=== PATIENT | male | born 1975 | race African-American/Black ===

== ENCOUNTER 2017-01-12 02:57 | Emergency (ER) | payer MEDICARE, MEDICAID ==
[2017-01-12] MEDS ORDERED: Magnesium Citrate 300 ML BOT ONE (04:43)
== END 2017-01-12 04:55 | disposition home or self-care (01) ==
LOC: ERS 02:57
DX: K59.00 Constipation, unspecified (principal)
CPT/HCPCS: 99283

== ENCOUNTER 2017-07-21 15:49 | Emergency (ER) | payer MEDICARE, MEDICAID | END 2017-07-21 16:36 | disposition home or self-care (01) | LOC: ERS 15:49 | DX: L03.114 Cellulitis of left upper limb (principal); I10 Essential (primary) hypertension; F17.200 Nicotine dependence, unspecified, uncomplicated; Z79.899 Other long term (current) drug therapy | CPT/HCPCS: 99283 ==

== ENCOUNTER 2019-03-28 16:31 | Emergency (ER) | payer MEDICARE, MEDICAID ==
[2019-03-28] MEDS ORDERED: Dexamethasone 10 MG/ML VIAL ONE (16:53)
== END 2019-03-28 17:13 | disposition home or self-care (01) ==
LOC: ERS 16:31
DX: L20.9 Atopic dermatitis, unspecified (principal); G89.29 Other chronic pain; M25.561 Pain in right knee; M25.562 Pain in left knee
CPT/HCPCS: 99282; J1100

== ENCOUNTER 2019-03-30 12:15 | Emergency (ER) | payer MEDICARE, MEDICAID ==
[2019-03-30] MEDS ORDERED: Aspirin 325 MG TAB ONE (14:18)
[2019-03-30] MEDS ORDERED: Ondansetron ODT 4 MG TAB ONE (14:18)
--- NOTE | 2019-03-30 14:24 | RAD ---
XR Chest 1 View Portable History: Shortness of breath Comparison: Chest radiograph 2009 Findings: There are 2 separate-short catheter projecting over the right hemithorax. Likely calcified granuloma right lower lobe. No lungs are clear without consolidation, pneumothorax, or effusion. No acute osseous abnormality. Impression: No acute intrathoracic abnormality.
[2019-03-30 14:40] LABS: #Basophils 0.1 thou/uL (0.0-0.2); #Eosinphils 0.1 thou/uL (0.0-0.7); #Lymphocytes 4.1 thou/uL (1.20-3.40); #Monocytes 1.2 thou/uL (0.11-0.59); #Neutrophils 8.6 thou/uL (1.40-6.50); %Basophils 0.7 % (0.0-1.0); %Eosinophils 0.5 % (0.0-10.0); %Lymphocytes 29.1 % (21.0-51.0); %Monocytes 8.7 % (0.0-10.0); Hemoglobin 11.9 g/dL (14.0-18.0); Mean Corpuscular HGB CONC 33.1 g/dL (32.0-36.0); Mean Corpuscular Hemoglobin 24.7 pg (27.0-31.0); Mean Corpuscular Volume 74.8 fL (78.0-98.0); Mean Platelet Volume 6.8 fL (7.4-10.4); Platelet Count 350 thou/uL (130-400); RBC Distribution Width 13.6 % (11.5-14.5); Red Blood Cell (RBC) Count 4.79 mill/uL (4.70-6.10); White Blood Cell (WBC) Count 14.2 thou/uL (4.8-10.8)
[2019-03-30 15:02] LABS: MDiff Complete? YES; Microcytosis SLIGHT = 6-15 cells (100X) (0-5/hpf); Platelet Morphology Comment Appears Adequate; Polychromasia SLIGHT = 2-3 cells (100X) (0-2/hpf); Schistocytes SLIGHT = 2-5 cells (100X) (0-1/hpf); Target Cells SLIGHT = 2-5 cells (100X) (0-1/hpf); Tear Drops SLIGHT = 2-5 cells (100X) (0-1/hpf)
[2019-03-30 15:11] LABS: ALT (SGPT) 15 U/L (8-55); AST (SGOT) 12 U/L (5-34); Albumin 4.2 g/dL (3.5-5.0); Alkaline Phosphatase 51 U/L (40-110); Anion Gap 12 mmol/L (10-20); BUN (Urea Nitrogen) 21 mg/dL (8.9-20.6); Bilirubin, Total 0.5 mg/dL (0.2-1.2); Calc. Creatinine Clearance 0 mL/min (70-130); Calcium 10.1 mg/dL (7.8-10.44); Carbon Dioxide 29 mmol/L (22-29); Chloride 92 mmol/L (98-107); Estimated GFR-MDRD Greater than 90; Globulin 2.5 g/dL (2.4-3.5); Glucose 83 mg/dL (70-105); Potassium 4.4 mmol/L (3.5-5.1); Protein, Total 6.7 g/dL (6.0-8.3); Sodium 129 mmol/L (136-145)
--- NOTE | 2019-03-30 15:37 | CT ---
Exam: Head CT without contrast HISTORY: Hiccups. Chills. SCADA TECHNICIAN shunt catheter. Brain tumor. COMPARISON: none FINDINGS: Hemorrhage: No intraparenchymal hemorrhage or extra-axial hematoma. Brain parenchyma: Cortical mcmullen-white matter differentiation is preserved. No mass effect or midline shift. 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 Stable calcification of the left and right tentorium. Stable hypoattenuation in the right centrum semiovale. Ventricular system: Decompressed. Stable positioning of a SCADA TECHNICIAN shunt catheter, likely terminating in th e frontal horn left lateral ventricle. Calvarium: Chronic changes to the occipital calvarium are noted. Sinuses and mastoid air cells: Adequate aeration. IMPRESSION: 1. Decompression of the ventricular system. Ventriculostomy terminating likely in the frontal horn le ft lateral ventricle. 2. Stable hypodensity in the right centrum semiovale. 3. Stable postsurgical change.
[2019-03-30 17:25] LABS: Troponin I Less than 0.010 ng/mL (< 0.028)
== END 2019-03-30 18:28 | disposition home or self-care (01) ==
LOC: ERS 12:15
DX: R07.89 Other chest pain (principal); I10 Essential (primary) hypertension; F17.210 Nicotine dependence, cigarettes, uncomplicated; F32.9 Major depressive disorder, single episode, unspecified
CPT/HCPCS: 36415; 70450; 71045; 80053; 84484; 85025; 93005; Q0162

== ENCOUNTER 2019-08-15 20:04 | Inpatient (IN) | payer MEDICARE, OTHER ==
[2019-08-15] MEDS ORDERED: Ondansetron PF 4 MG/2 ML Vial ONE (20:34)
--- NOTE | 2019-08-15 20:42 | RAD ---
Exam: Chest one view HISTORY:Cough. Comparison: 03/30/2019 FINDINGS: Cardiac silhouette: Normal Aorta: Unremarkable Pulmonary vessels: Normal Costophrenic angles: Clear LUNGS: No mass or consolidation. There is interstitial prominence. Pneumothorax: None Osseous abnormalities: None Redemonstration of a REAL ESTATE CLOSING COORDINATOR shunt catheter with associated peripheral calcification. IMPRESSION: Interstitial prominence. Correlate for interstitial pneumonitis.
[2019-08-15 20:43] LABS: #Lymphocytes 1.7 thou/uL (1.20-3.40); #Monocytes 0.5 thou/uL (0.11-0.59); #Neutrophils 3.4 thou/uL (1.40-6.50); %Basophils 0.3 % (0.0-1.0); %Eosinophils 0.4 % (0.0-10.0); %Lymphocytes 30.4 % (21.0-51.0); %Monocytes 9.2 % (0.0-10.0); %Neutrophils 59.6 % (42.0-75.0); Hemoglobin 13.4 g/dL (14.0-18.0); Mean Corpuscular HGB CONC 33.4 g/dL (32.0-36.0); Mean Corpuscular Hemoglobin 24.9 pg (27.0-31.0); Mean Corpuscular Volume 74.6 fL (78.0-98.0); Mean Platelet Volume 6.6 fL (7.4-10.4); Platelet Count 359 thou/uL (130-400); RBC Distribution Width 13.9 % (11.5-14.5); White Blood Cell (WBC) Count 5.6 thou/uL (4.8-10.8)
[2019-08-15 20:59] LABS: ALT (SGPT) 35 U/L (8-55); AST (SGOT) 25 U/L (5-34); Albumin 4.5 g/dL (3.5-5.0); Alkaline Phosphatase 93 U/L (40-110); Anion Gap 13 mmol/L (10-20); BUN (Urea Nitrogen) 9 mg/dL (8.9-20.6); Bilirubin, Total 0.7 mg/dL (0.2-1.2); Calc. Creatinine Clearance 0 mL/min (70-130); Calcium 9.6 mg/dL (7.8-10.44); Carbon Dioxide 25 mmol/L (22-29); Chloride 88 mmol/L (98-107); Estimated GFR-MDRD Greater than 90; Globulin 3.3 g/dL (2.4-3.5); Glucose 106 mg/dL (70-105); Lipase 39 U/L (8-78); Potassium 3.8 mmol/L (3.5-5.1); Protein, Total 7.8 g/dL (6.0-8.3); Sodium 122 mmol/L (136-145)
[2019-08-15 21:02] LABS: MDiff Complete? YES; Microcytosis SLIGHT = 6-15 cells (100X) (0-5/hpf); Platelet Morphology Comment Appears Adequate; Polychromasia SLIGHT = 2-3 cells (100X) (0-2/hpf); Schistocytes SLIGHT = 2-5 cells (100X) (0-1/hpf); Target Cells SLIGHT = 2-5 cells (100X) (0-1/hpf); Tear Drops SLIGHT = 2-5 cells (100X) (0-1/hpf)
--- NOTE | 2019-08-15 23:52 | CT ---
Exam: Head CT without contrast HISTORY: Nausea. Vomiting. Patient has a ventriculoperitoneal shunt. COMPARISON: 03/30/2019 FINDINGS: Hemorrhage: No intraparenchymal hemorrhage or extra-axial hematoma. Brain parenchyma: Stable hypoattenuation involving the right verde radiata and centrum semiovale. 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 Stable right frontal ventriculoperitoneal shunt catheter. Stable configuration the ventricular system. Ventricles appear to be significantly decompre ssed. Stable calcification along the tentorium. Ventricular system: Stable decompression of the ventricular system. Calvarium: Stable postsurgical changes involving the occiput. Sinuses and mastoid air cells: Adequate aeration. IMPRESSION: 1. No significant interval change. 2. Stable postsurgical change. 3. Stable decompression of the ventricular system.
[2019-08-16] MEDS ORDERED: Acetaminophen 500 MG TAB ONE (00:59)
--- NOTE | 2019-08-16 01:20 | PDOC.FPRHP ---
- History of Present Illness Chief Complaint: n/v/d History of Present Illness: Mr. Gotti is a 43 yo with pmhx sig for hyponatremia, s/p tumor resection with DIGITAL MARKETING PROJECT MANAGER shunt pt reports that today he has had 3 episodes of nb/b emesis, diarrhea, sick contactx1, and diffuse abdominal pain. he denies fever, chills, sob, cough, known environmental exposures, or chest pain. He was in his usual state of health the day prior. He has not had any recent follow up with neurology. He reports these episodes happen occasionally and throughout our conversation brings up chronic back and knee pain. He does not have much of an appetite ED Course: cbc, cmp, CT head 1L NS, tylenol, zofran - Allergies/Adverse Reactions Allergies Allergy/AdvReac Type Severity Reaction Status Date / Time No Known Allergies Allergy Verified 08/16/19 02:06 - Home Medications Medication Instructions Recorded Confirmed Type Escitalopram Oxalate 20 mg PO DAILY 08/16/19 08/16/19 History Hydrochlorothiazide 25 mg PO QAM 08/16/19 08/16/19 History - History PMHx: brain tumor resection w/ DIGITAL MARKETING PROJECT MANAGER shunt, HTN PSHx: above FHx: none Social: denies TAD - Review of Systems General: reports: weight/appetite/sleep changes. denies: fever/chills Eyes: denies: vision changes Respiratory: denies: cough, shortness of breath Cardiovascular: denies: chest pain, edema Gastrointestinal: reports: nausea, vomiting, diarrhea, abdominal pain. denies: GI bleeding Genitourinary: denies: incontinence, dysuria Skin: denies: rashes, lesions Musculoskeletal: reports: pain Neurological: denies: numbness, syncope - Vital signs 154/97, Pulse: 88, Resp: 19, Temp: 98.7 (Oral), Pain: 10, O2 sat: 100 on (Room Air - Physical Exam Constitutional: NAD, awake, alert and oriented HEENT: normocephalic and atraumatic, grossly normal vision, grossly normal hearing, MMM Neck: trachea midline Chest: no-tender to palpation Heart: RRR, normal S1/S2, no murmurs/rubs/gallops Lungs: CTAB, no respiratory distress Abdomen: soft, bowel sounds present, no masses/distention, other (TTP) Musculoskeletal: normal structure, normal tone Neurological: no focal deficit, CN II-XII intact Skin: no rash/lesions, good turgor Heme/Lymphatic: no unusual bruising or bleeding Psychiatric: normal mood and affect FMR H&P: Results - Labs Result Diagrams: 08/16/19 05:35 08/16/19 09:14 Lab results: WBC 5.6 thou/uL (4.8-10.8) 08/15/19 20:30 Hgb 13.4 g/dL (14.0-18.0) L 08/15/19 20:30 Hct 40.3 % (42.0-52.0) L 08/15/19 20:30 MCV 74.6 fL (78.0-98.0) L 08/15/19 20:30 Plt Count 359 thou/uL (130-400) 08/15/19 20:30 Neutrophils % 59.6 % (42.0-75.0) 08/15/19 20:30 Sodium 122 mmol/L (136-145) L 08/15/19 20:30 Potassium 3.8 mmol/L (3.5-5.1) 08/15/19 20:30 Chloride 88 mmol/L (98-107) L 08/15/19 20:30 Carbon Dioxide 25 mmol/L (22-29) 08/15/19 20:30 BUN 9 mg/dL (8.9-20.6) 08/15/19 20:30 Creatinine 0.78 mg/dL (0.7-1.3) 08/15/19 20:30 Glucose 106 mg/dL (70-105) H 08/15/19 20:30 Lactic Acid 0.8 mmol/L (0.5-2.2) 08/15/19 20:30 Calcium 9.6 mg/dL (7.8-10.44) 08/15/19 20:30 Total Bilirubin 0.7 mg/dL (0.2-1.2) 08/15/19 20:30 AST 25 U/L (5-34) 08/15/19 20:30 ALT 35 U/L (8-55) 08/15/19 20:30 Alkaline Phosphatase 93 U/L (40-110) 08/15/19 20:30 Serum Total Protein 7.8 g/dL (6.0-8.3) 08/15/19 20:30 Albumin 4.5 g/dL (3.5-5.0) 08/15/19 20:30 Lipase 39 U/L (8-78) 08/15/19 20:30 FMR H&P: A/P - Problem List (1) S/P DIGITAL MARKETING PROJECT MANAGER shunt Current Visit: Yes Status: Acute (2) Hyponatremia Current Visit: Yes Status: Acute Code(s): E87.1 - HYPO-OSMOLALITY AND HYPONATREMIA (3) Viral gastroenteritis Current Visit: Yes Status: Acute Code(s): A08.4 - VIRAL INTESTINAL INFECTION , UNSPECIFIED (4) Chronic pain Current Visit: Yes Status: Acute Code(s): G89.29 - OTHER CHRONIC PAIN - Plan hypovolemic hyponatremia - baseline 129, 122 on admission, s/p 1L in ED - ivf rescus, Q4hr BMP - do no correct greater than 130 in 24hr period s/p DIGITAL MARKETING PROJECT MANAGER shunt - CT does not reveal hydrocephalus HTN - aware, monitor - no home meds chronic pain - UDS pending ppx: lovenox code: full pcp: CC dispo: medical inpatient, LOS>48 for hyponatremia correction FMR H&P: Upper Level - Plan Date/Time: 08/16/19 0116 I, [], have evaluated this patient and agree with findings/plan as outlined by internal consultant resident. Pertinent changes/additions are listed here. Addendum - Attending - Attending Attestation Date/Time: 08/16/19 1310 I personally evaluated the patient and discussed the management with Dr. Mcwilliams. I agree with the History, Examination, Assessment and Plan documented above with any addition or exceptions noted below. Acute on chronic hyponatremia. Clinically volume down. Likely hypovolemic hyponatremia. Urine studies consistent with this diagnosis. Will switch to NS as decrease Na after 8 hrs of LR. If not improving or worsening hyponatremia at next check will consult nephrology and consider adding vasopressin receptor antagonist and fluid restricting. Patient expressed desire to go home today. I explained he would need to stay overnight an explained to he and his SO that if his serum sodium down trends further, he may be at risk for seizure. They expressed understanding and agreed to continued hospitalization.
[2019-08-16] MEDS ORDERED: Ondansetron ODT 4 MG TAB PO PRN ×2 (02:08→03:28)
[2019-08-16 02:10] VITALS: BMI 27.5
[2019-08-16] MEDS ORDERED: Ondansetron PF 4 MG/2 ML Vial IVP PRN (03:28)
[2019-08-16] MEDS ORDERED: Acetaminophen 650 MG Suppository PR PRN (03:28)
[2019-08-16] MEDS ORDERED: Lactated Ringer's 1,000 ML IV SCH (03:28)
[2019-08-16 03:59] LABS: Bacteria/HPF None Seen HPF (None Seen); Bilirubin Negative (Negative); Blood, Urine Negative (Negative); Clarity Clear (Clear); Glucose, Urine (Dipstick) Normal (Negative); Leukocyte Negative Leu/uL (Negative); Nitrite Negative (Negative); Protein, Urine (Dipstick) 10 mg/dL (Neg-Trace); Squamous Epithelial 0-3 HPF (0-3); Urobilinogen Normal mg/dL (Less than 2); WBC/HPF 0-3 HPF (0-3)
[2019-08-16 04:10] LABS: Amphetamine Not Detected (NotDetected); Barbiturates Screen Not Detected (NotDetected); Benzodiazepine Screen Not Detected (NotDetected); Cocaine Metabolite Screen Not Detected (NotDetected); Medtox Control Line Valid? VALID (VALID); Medtox Reader # READER 4; Methadone Not Detected (NotDetected); Methamphetamine Not Detected (NotDetected); Opiate Screen Not Detected (NotDetected); Oxycodone Screen Not Detected (NotDetected); Phencyclidine (PCP) Not Detected (NotDetected); THC/Cannabinoid Screen Not Detected (NotDetected); Tricyclic Screen Not Detected (NotDetected)
[2019-08-16] MEDS: Acetaminophen 325 MG TAB PO PRN (04:23)
[2019-08-16 05:51] LABS: #Basophils 0.1 thou/uL (0.0-0.2); #Lymphocytes 1.1 thou/uL (1.20-3.40); #Monocytes 0.5 thou/uL (0.11-0.59); #Neutrophils 2.5 thou/uL (1.40-6.50); %Basophils 1.3 % (0.0-1.0); %Eosinophils 0.4 % (0.0-10.0); %Lymphocytes 26.4 % (21.0-51.0); %Monocytes 12.3 % (0.0-10.0); %Neutrophils 59.6 % (42.0-75.0); Hemoglobin 12.3 g/dL (14.0-18.0); Mean Corpuscular HGB CONC 32.5 g/dL (32.0-36.0); Mean Corpuscular Hemoglobin 24.5 pg (27.0-31.0); Mean Corpuscular Volume 75.3 fL (78.0-98.0); Mean Platelet Volume 7.1 fL (7.4-10.4); Platelet Count 333 thou/uL (130-400); RBC Distribution Width 13.6 % (11.5-14.5); Red Blood Cell (RBC) Count 5.01 mill/uL (4.70-6.10); White Blood Cell (WBC) Count 4.3 thou/uL (4.8-10.8)
[2019-08-16 06:08] LABS: Anion Gap 14 mmol/L (10-20); BUN (Urea Nitrogen) 8 mg/dL (8.9-20.6); Calc. Creatinine Clearance 146 mL/min (70-130); Calcium 9.3 mg/dL (7.8-10.44); Carbon Dioxide 24 mmol/L (22-29); Chloride 88 mmol/L (98-107); Estimated GFR-MDRD Greater than 90; Glucose 96 mg/dL (70-105); Potassium 3.5 mmol/L (3.5-5.1); Sodium 122 mmol/L (136-145)
[2019-08-16] MEDS: Enoxaparin Sodium 40 MG/0.4 ML SYRINGE SC SCH (08:47)
[2019-08-16] MEDS: Escitalopram Oxalate 20 mg Tablet PO SCH (08:47)
[2019-08-16] MEDS ORDERED: Dicyclomine 20 MG TAB PO PRN (08:51)
[2019-08-16 09:42] LABS: Anion Gap 13 mmol/L (10-20); BUN (Urea Nitrogen) 8 mg/dL (8.9-20.6); Calc. Creatinine Clearance 146 mL/min (70-130); Calcium 9.2 mg/dL (7.8-10.44); Carbon Dioxide 23 mmol/L (22-29); Chloride 88 mmol/L (98-107); Estimated GFR-MDRD Greater than 90; Glucose 134 mg/dL (70-105); Potassium 3.6 mmol/L (3.5-5.1); Sodium 120 mmol/L (136-145)
[2019-08-16] MEDS ORDERED: Sodium Chloride 0.9% 1,000 ML IV SCH (11:00)
[2019-08-16 12:47] LABS: Creatinine, Urine 157.21 mg/dL (63-166)
[2019-08-16 14:00] LABS: Anion Gap 12 mmol/L (10-20); BUN (Urea Nitrogen) 7 mg/dL (8.9-20.6); Calc. Creatinine Clearance 148 mL/min (70-130); Calcium 9.1 mg/dL (7.8-10.44); Carbon Dioxide 25 mmol/L (22-29); Chloride 84 mmol/L (98-107); Estimated GFR-MDRD Greater than 90; Glucose 122 mg/dL (70-105); Potassium 3.3 mmol/L (3.5-5.1)
[2019-08-16 14:04] LABS: Sodium 118 mmol/L (136-145)
[2019-08-16] MEDS: Sodium Chloride 1 GM TAB PO SCH ×2 (14:51→21:07)
[2019-08-16 18:03] LABS: Anion Gap 16 mmol/L (10-20); BUN (Urea Nitrogen) 6 mg/dL (8.9-20.6); Calc. Creatinine Clearance 159 mL/min (70-130); Calcium 9.4 mg/dL (7.8-10.44); Carbon Dioxide 22 mmol/L (22-29); Chloride 83 mmol/L (98-107); Estimated GFR-MDRD Greater than 90; Glucose 99 mg/dL (70-105); Potassium 3.3 mmol/L (3.5-5.1)
[2019-08-16 18:16] LABS: Sodium 118 mmol/L (136-145)
[2019-08-16] MEDS ORDERED: Ibuprofen 800 MG TAB PO PRN (18:18)
[2019-08-16] MEDS ORDERED: Potassium Chloride 20 MEQ TAB PO SCH (19:00)
--- NOTE | 2019-08-16 20:03 | CON ---
DATE OF CONSULTATION: 08/16/2019 SERVICE: Nephrology. CONSULTING PHYSICIAN: Dr. David Oconnor. REASON FOR CONSULTATION: Hyponatremia. CHIEF COMPLAINT: Nausea and vomiting. HISTORY OF PRESENT ILLNESS: A 43-year-old male with known history of brain tumor, status post tumor resection with SOLAR FIELD INSTALLATION CREW MEMBER shunt placement, was admitted earlier today due to nausea, vomiting associated with diarrhea and abdominal discomfort that started prior to presentation. The patient reportedly had about 3 episodes of emesis and diarrhea prior to presentation. There was no associated fever, chills, shortness of breath, cough, or chest pain. In the emergency room, the patient was found to have hyponatremia with sodium of 122, which was relatively lower than previous level of 129. Impression of possible dehydration was made and the patient was started on lactated Ringer's after normal saline bolus. However, repeat BMP showed downward trending of serum sodium from 122 on presentation to 118, hence Nephrology consult. The patient denied any focal weakness, change in gait or memory lapses. PAST MEDICAL HISTORY: 1. Brain tumor, status post resection. 2. Hypertension. PAST SURGICAL HISTORY: Brain tumor resection and SOLAR FIELD INSTALLATION CREW MEMBER shunt placement. PSYCHIATRIC ILLNESS: Depression. FAMILY HISTORY: Reviewed, but noncontributory. SOCIAL HISTORY: The patient denied recreational drug use, but admitted to alcohol use, which he reports occasionally about 2 times in a month. He admitted to smoking about 2 packs per day. ALLERGIES: NO KNOWN DRUG ALLERGIES REPORTED. HOME MEDICATIONS: 1. Acyclovir 800 mg p.o. p.r.n. 2. Diclofenac 100 mg p.o. daily in the morning. 3. Escitalopram 20 mg p.o. daily. 4. Gabapentin 600 mg p.o. t.i.d. 5. Hydrochlorothiazide 25 mg p.o. daily. 6. Ibuprofen 800 mg p.o. p.r.n. 7. Meloxicam p.o. daily at bedtime. 8. Trazodone p.o. daily at bedtime. REVIEW OF SYSTEMS: 12-point review of system performed was negative other than pertinent positives and negatives included in the history of present illness. PHYSICAL EXAMINATION: VITAL SIGNS: Temperature 98.2, pulse 77, respiratory rate 18, SpO2 of 100% on room air, and blood pressure is 141/94. GENERAL: Middle-aged male, in no obvious distress. Afebrile. Anicteric. Acyanotic. HEENT: Normocephalic. Scars of prior head surgery noted. Oral mucosa is moist. NECK: Supple with no JVD. CARDIOVASCULAR: Regular rhythm and rate with normal heart sounds 1 and 2. RESPIRATORY: Fair air entry bilaterally with no obvious crackle or rhonchi or use of accessory muscles. GI: Full, soft, nontender, and nondistended with normal bowel sounds. EXTREMITIES: Grossly normal looking atraumatic with no obvious edema or erythema. SUPERVISOR COREMAKER: Conscious and alert, oriented x3 with appropriate mental status. Cranial nerves 2 through 12 are grossly intact. The patient is ambulant with antalgic gait. He ambulates with a cane. DIAGNOSTIC DATA: CBC earlier today showed WBC count of 4.3, hemoglobin of 12.3, MCV of 75.3, and platelet of 333. Most recent BMP at 1323 hours today showed sodium 118, potassium 3.3, chloride 84, CO2 of 25, BUN 7, creatinine 0.74, glucose 122, calcium 9.1. However, on presentation to the hospital on August 14, sodium was 125, potassium 3.8, chloride 88, CO2 of 25, BUN 9, and creatinine 0.78. LFTs were unremarkable. Urinalysis performed earlier today showed light yellow clear urine with pH of 7.0, specific gravity of 1.024, urine protein 10 mg/dL, normal glucose, ketones were 60 mg/dL, negative blood, nitrite, bilirubin, or leukocyte esterase. Microscopy showed 4 to 6 rbc, 0 to 3 wbc, and no bacteria seen. Urine chemistry showed urine osmolality 797, urine creatinine 157.2, urine sodium 177, and urine urea nitrogen 549. Urine drug screen was unremarkable. CT scan of the brain performed on presentation on August 14 showed no significant interval change when compared to prior imaging of March 30, 2019. Stable postsurgical changes as well as stable decompression of the ventricular system were noted. Chest x-ray performed on presentation on August 14, 2018, showed interstitial prominence, but no masses or consolidation nor pneumothorax. ASSESSMENT: 1. Hyponatremia, moderate to severe. On presentation, plasma sodium was 122, which dropped to 118 following treatment with crystalloid. Of note, the patient has hyponatremia, which dates back to 2016. This most likely is related to the brain tumor and brain surgery. However, the patient also is on hydrochlorothiazide and on trazodone and then Cymbalta, which can all lead to hyponatremia. Urine osmolality of 797 in the face of hyponatremia of 118 is consistent with syndrome of inappropriate ADH secretion. This may have been worsened by current episode of nausea and vomiting. 2. Hypokalemia: Due to treatment with hydrochlorothiazide and GI losses as the patient had diarrhea illness. 3. Presumed acute gastroenteritis: Most likely food poisoning related, resolving. 4. Stable renal function. 5. Hypertension: Control is acceptable. PLAN: 1. Agree with holding of hydrochlorothiazide. 2. We will go ahead and stop crystalloids. 3. Given that sodium has dropped down from 122 on presentation to 118, we will go ahead and start the patient on oral salt tablets, though the patient remained asymptomatic neurologically. 4. We will continue to monitor serum electrolytes. 5. We will also replete serum potassium. 6. We will get repeat BMP in the morning as well as magnesium level. 7. Further treatment to follow depending on hospital course. 8. Agree with fluid restriction to 1000 mL per 24 hours. Job ID: [id number]
[2019-08-16] MEDS: traZODone HCl 50 MG TAB PO SCH (21:06)
[2019-08-16] MEDS: Gabapentin 300 MG CAP PO SCH (21:07)
[2019-08-17] MEDS ORDERED: Cosyntropin 250 MCG VIAL SLOW IVP SCH ×2 (06:10→07:10)
--- NOTE | 2019-08-17 06:20 | PDOC.FM ---
- Subjective Subjective: Pt is a 43 yo male who is AAO x 3. He has no confusion and did not have any. He denies neurological deficits. He has no concerns today. - Objective Vital Signs & Weight: Vital Signs (12 hours) Temp Pulse Resp BP BP Pulse Ox 08/16/19 23:47 98.2 F 70 16 141/88 H 100 08/16/19 20:04 98.0 F 84 12 135/75 100 08/16/19 19:35 100 Weight Weight 82.146 kg I&O: 08/15/19 08/16/19 08/17/19 06:59 06:59 06:59 Intake Total 840 110 Balance 840 110 Result Diagrams: 08/16/19 05:35 08/17/19 06:00 Phys Exam - Physical Examination Constitutional: NAD HEENT: PERRLA, moist MMs Respiratory: no wheezing, clear to auscultation bilateral Cardiovascular: RRR, no significant murmur Gastrointestinal: soft, non-tender, no distention Musculoskeletal: no edema, pulses present Neurological: non-focal, normal sensation Psychiatric: normal affect, A&O x 3 Skin: no rash, cap refill <2 seconds Dx/Plan (1) Chronic pain Code(s): G89.29 - OTHER CHRONIC PAIN Status: Acute (2) Hyponatremia Code(s): E87.1 - HYPO-OSMOLALITY AND HYPONATREMIA Status: Acute (3) S/P SNOW SHOVELER shunt Status: Acute - Plan Plan: # Hypovolemic hyponatremia superimposed on Euvolemic Hyponatremia - baseline 129, 122 on admission, - continue fluid restriction, salt lick, hold HCTZ - follow BMP this afternoon - follow up on cortisol testing # s/p SNOW SHOVELER shunt - CT does not reveal hydrocephalus # HTN - aware, monitor - holding HCTZ # chronic pain - UDS pending ppx: lovenox code: full pcp: CC dispo: No neurological deficits.pt returning to baseline. Possible discharge with PCP follow up. Addendum - Attending - Attending Attestation Date/Time: 08/17/19 1212 I personally evaluated the patient and discussed the management with Dr. Foster. I agree with the History, Examination, Assessment and Plan documented above with any addition or exceptions noted below. 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 Improved with hydration and salt tabs. HCTZ stopped. Likely stable for discharge later today.
[2019-08-17 06:32] LABS: Anion Gap 12 mmol/L (10-20); BUN (Urea Nitrogen) 4 mg/dL (8.9-20.6); Calc. Creatinine Clearance 148 mL/min (70-130); Calcium 9.7 mg/dL (7.8-10.44); Carbon Dioxide 26 mmol/L (22-29); Chloride 91 mmol/L (98-107); Estimated GFR-MDRD Greater than 90; Glucose 91 mg/dL (70-105); Magnesium 1.7 mg/dL (1.6-2.6); Potassium 3.6 mmol/L (3.5-5.1); Sodium 125 mmol/L (136-145)
[2019-08-17] MEDS ORDERED: Potassium Chloride 20 MEQ/100 ML PREMIX BAG IVPB SCH (07:00)
[2019-08-17] MEDS: Escitalopram Oxalate 20 mg Tablet PO SCH (09:18)
[2019-08-17] MEDS: Potassium Chloride 20 MEQ TAB PO SCH ×2 (09:18→17:49)
[2019-08-17] MEDS: Gabapentin 300 MG CAP PO SCH ×3 (09:18→20:28)
[2019-08-17] MEDS: Magnesium Oxide 400 MG TAB PO SCH ×2 (09:18→20:28)
[2019-08-17] MEDS: Enoxaparin Sodium 40 MG/0.4 ML SYRINGE SC SCH (09:21)
--- NOTE | 2019-08-17 11:58 | PRG ---
DATE OF SERVICE: 08/17/2019 SERVICE: Nephrology. SUBJECTIVE: A 43-year-old male with known history of brain tumor, status post resection and TECHNICAL INFORMATION SPECIALIST shunt placement, admitted due to nausea and vomiting associated with diarrhea. Nephrology is seeing the patient for hyponatremia. The patient reports improvement in generalized symptoms. Tolerating oral intake. Denied fever, shortness of breath, or leg swelling. OBJECTIVE: VITAL SIGNS: Temperature 98.7, pulse 77, respiratory rate 18, SpO2 of 100% on room air, and blood pressure 136/85. GENERAL: Comfortable male patient, in no distress. Afebrile. Anicteric. Acyanotic. HEENT: Normocephalic and atraumatic. Oral mucosa is moist. CARDIOVASCULAR: Regular rhythm and rate with normal heart sounds 1 and 2. RESPIRATORY: Good air entry bilaterally with no obvious crackle or rhonchi or use of accessory muscles. GI: Full, soft, nontender, and nondistended with normal bowel sounds. EXTREMITIES: Grossly normal looking, atraumatic with no obvious edema or erythema. ARABIC TEACHER: Conscious, alert, and oriented x3 with appropriate mental status. The patient however had slow mentation. DIAGNOSTIC DATA: BMP today showed sodium 125, potassium 3.6, chloride 91, CO2 of 26, BUN 4, creatinine 0.74, glucose 91, and calcium 9.7. Magnesium is 1.7. ASSESSMENT: 1. Hyponatremia: Due to syndrome of inappropriate antidiuretic hormone with possible contribution from use of thiazide diuretic. Sodium is up from 118 to 125. Of note, the patient came in with 122, but went down with crystalloid to 118 before going up to 125. The patient is on salt tablet and fluid restriction. 2. Syndrome of inappropriate antidiuretic hormone secretion, most likely related to medication and brain tumor/surgery. 3. Hypokalemia: Repleted. 4. Hypomagnesemia. 5. Presumed acute gastroenteritis, improving. PLAN: 1. We will hold salt tablet at this time due to increment of 7 units in the last 18 hours due to treatment with sodium salt restriction and sodium tablets. 2. We will continue potassium tablets. 3. We will also start the patient on magnesium supplementation. 4. We will recheck renal function test and electrolytes in the morning. Further treatment to follow depending on hospital course. 5. Continue fluid restriction. Continue to hold hydrochlorothiazide. Job ID: [id number]
[2019-08-17 12:37] LABS: Anion Gap 14 mmol/L (10-20); BUN (Urea Nitrogen) 6 mg/dL (8.9-20.6); Calc. Creatinine Clearance 146 mL/min (70-130); Calcium 9.9 mg/dL (7.8-10.44); Carbon Dioxide 26 mmol/L (22-29); Chloride 88 mmol/L (98-107); Estimated GFR-MDRD Greater than 90; Glucose 98 mg/dL (70-105); Potassium 3.8 mmol/L (3.5-5.1); Sodium 124 mmol/L (136-145)
[2019-08-17] MEDS: Acetaminophen 325 MG TAB PO PRN ×2 (13:29→20:28)
[2019-08-17] MEDS ORDERED: Ibuprofen 800 MG TAB PO SCH (16:30)
[2019-08-17] MEDS: traZODone HCl 50 MG TAB PO SCH (20:27)
--- NOTE | 2019-08-18 07:10 | PDOC.FM ---
- Subjective Subjective: Pt is doing well today. He has no complaints. He is alert and oriented. Denies n/v, change in mentation. - Objective Vital Signs & Weight: Vital Signs (12 hours) Temp Pulse Resp BP BP BP Pulse Ox 08/18/19 03:10 98.2 F 77 16 128/73 08/17/19 23:54 98.6 F 80 20 105/70 98 08/17/19 20:00 100 08/17/19 19:23 99.5 F 88 18 136/83 100 Weight Admit Weight 82.146 kg Weight 82.146 kg I&O: 08/17/19 08/18/19 08/19/19 06:59 06:59 06:59 Intake Total 110 2850 Output Total 1100 Balance 110 1750 Result Diagrams: 08/16/19 05:35 08/18/19 07:30 Phys Exam - Physical Examination Constitutional: NAD HEENT: PERRLA, moist MMs Respiratory: no wheezing, clear to auscultation bilateral Cardiovascular: RRR, no significant murmur Gastrointestinal: soft, non-tender Musculoskeletal: no edema, pulses present Neurological: non-focal, normal sensation, moves all 4 limbs Psychiatric: A&O x 3 Skin: no rash, cap refill <2 seconds Dx/Plan (1) Chronic pain Code(s): G89.29 - OTHER CHRONIC PAIN Status: Acute (2) Hyponatremia Code(s): E87.1 - HYPO-OSMOLALITY AND HYPONATREMIA Status: Acute (3) S/P DBA DEVELOPER shunt Status: Acute - Plan Plan: # Hypovolemic hyponatremia superimposed on Euvolemic Hyponatremia - at baseline sodium - baseline 129, 122 on admission, 125 yesterday, [address] Steward d/c salt lick and following up in the outpt setting on 07/25 w/ a BMP draw on 07/24. Will need to maintain sodium levels via fluid restriction to 1 L. - nephrology consulted, Dr. Steward # s/p DBA DEVELOPER shunt - CT does not reveal hydrocephalus # HTN - aware, monitor - holding HCTZ - BP's mildly elevated. Will re-evaluated at follow up with Dr. Steward # chronic pain - UDS negative ppx: lovenox code: full pcp: CC dispo: discharge today Addendum - Attending - Attending Attestation Date/Time: 08/18/19 9267 I personally evaluated the patient and discussed the management with Dr. Foster. I agree with the History, Examination, Assessment and Plan documented above with any addition or exceptions noted below. Sodium stable, stable for discharge.
[2019-08-18 07:54] LABS: Anion Gap 11 mmol/L (10-20); BUN (Urea Nitrogen) 7 mg/dL (8.9-20.6); Calc. Creatinine Clearance 134 mL/min (70-130); Calcium 9.8 mg/dL (7.8-10.44); Carbon Dioxide 27 mmol/L (22-29); Chloride 93 mmol/L (98-107); Estimated GFR-MDRD Greater than 90; Glucose 91 mg/dL (70-105); Potassium 3.8 mmol/L (3.5-5.1); Sodium 127 mmol/L (136-145)
[2019-08-18] MEDS: Potassium Chloride 20 MEQ TAB PO SCH (08:13)
[2019-08-18] MEDS: Gabapentin 300 MG CAP PO SCH (08:13)
[2019-08-18] MEDS: Sodium Chloride 1 GM TAB PO SCH (08:13)
[2019-08-18] MEDS: Magnesium Oxide 400 MG TAB PO SCH (08:13)
[2019-08-18] MEDS: Escitalopram Oxalate 20 mg Tablet PO SCH (08:13)
[2019-08-18] MEDS: Enoxaparin Sodium 40 MG/0.4 ML SYRINGE SC SCH (08:14)
--- NOTE | 2019-08-18 08:43 | PRG ---
DATE OF SERVICE: 08/18/2019 SERVICE: Nephrology. SUBJECTIVE: A 43-year-old male with prior history of brain tumor, hypertension on hydrochlorothiazide, and depression on antidepressant, seen in followup for hyponatremia. The patient was admitted due to nausea, vomiting, abdominal pain as well as diarrhea, which have resolved at this time. Discharge is contemplated. OBJECTIVE: VITAL SIGNS: Temperature 98.2, pulse 77, respiratory rate 16, SpO2 of 98% on room air, blood pressure is 128/73. GENERAL: Comfortable male patient in no distress. Afebrile. HEENT: Normocephalic. Scars of prior surgical procedures noted. Oral mucosa is moist. CARDIOVASCULAR: Regular rhythm and rate. Normal heart sounds 1 and 2. RESPIRATORY: Good air entry bilaterally with no crackle or rhonchi or use of accessory muscles. GI: Full, soft, nontender, nondistended with normal bowel sounds. EXTREMITIES: Grossly normal looking atraumatic with no obvious edema or erythema. DESIGN ENGINEERING INTERN: Conscious and alert and oriented x3 with appropriate mental status. The patient; however, is slow in assimilating tense and responding. DIAGNOSTIC DATA: BMP today showed sodium 127, potassium 3.8, chloride 93, CO2 of 27, BUN 7, creatinine 0.82, calcium 9.8. ASSESSMENT: 1. Hyponatremia: Due to SIADH related to medication and prior brain injury. Contribution from hydrochlorothiazide cannot be ruled out. Sodium is getting up with fluid restriction. The patient also received salt tablet. 2. Hypokalemia: Repleted. 3. Hypomagnesemia: Repleted with magnesium supplementation. PLAN: Continue current treatment. The patient can be discharged from Nephrology point of view with close followup. The patient was instructed to repeat BMP on August 23, to be seen in the office on August 24 at 10:30 a.m. Job ID: [id number]
[2019-08-18 10:29] VITALS: BP 140/95; TEMP 98.5
--- NOTE | 2019-08-19 14:33 | DIS ---
DATE OF ADMISSION: 08/16/2019 DATE OF DISCHARGE: 08/18/2019 RESIDENT: Ian Foster DO ADMITTING ATTENDING: Glenna Morrow MD DISCHARGE ATTENDING: Dillon Tillman MD CONSULTS: Nephrology, Vahe Hogue Obi, MD PROCEDURES PERFORMED: 1. Chest x-ray on 08/15/2019 revealed interstitial prominence. Correlate for interstitial pneumonitis. Redemonstration of AUTOMATIC RIVETING MACHINE OPERATOR shunt catheter with associated peripheral calcification. Cardiac silhouette within normal limits. 2. Brain CT on 08/15/2019 revealed no significant interval change. Stable postsurgical changes. Stable decompression of the ventricular system. PRIMARY DIAGNOSES: 1. Hypovolemic hyponatremia superimposed on euvolemic hyponatremia. 2. AUTOMATIC RIVETING MACHINE OPERATOR shunt. SECONDARY DIAGNOSES: 1. Hypertension. 2. Chronic pain. DISCHARGE MEDICATIONS: 1. Escitalopram 20 mg p.o. daily. 2. Trazodone 50 mg p.o. at bedtime. 3. Ibuprofen 800 mg p.o. p.r.n. headache. 4. Gabapentin 600 mg p.o. t.i.d. 5. Acyclovir 800 mg p.o. p.r.n., lesions. DISCONTINUED MEDICATIONS: 1. Diclofenac 100 mg p.o. q.a.m. 2. Meloxicam 50 mg p.o. at bedtime. 3. Hydrochlorothiazide 25 mg p.o. q.a.m. HISTORY OF PRESENT ILLNESS/HOSPITAL COURSE: Darius Gotti is a 43-year-old male, who presented to the hospital complaining of nausea, vomiting, diarrhea and diffuse abdominal pain. 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 About four years ago, he became chronically hyponatremic with his sodium normally in the high 120s. On admission, the patient's sodium was 120. This is likely due to multifactorial etiology. 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 He is also experiencing diarrhea, which likely caused him to have hypovolemic hyponatremia. The patient was also taking hydrochlorothiazide, which can also decrease sodium. The patient's hyponatremia resolved with discontinuation of the hydrochlorothiazide, fluid restriction and administering two salt tabs. On the day of discharge, the patient's sodium had rebounded to [address] Steward discussed with the patient follow up on Saturday with BMP to assess the sodium and to be seen in Dr. Steward's clinic on SaturdayAugust 24 for further assessment. Even with the continuation of the patient's hydrochlorothiazide his blood pressures remained within normal limits. Dr. Steward will replace the medication if patient has elevated pressures on followup. The patient is to continue home medications for anxiety and depression sleeping. The patient did experience a headache so I gave him ibuprofen and discharged him with ibuprofen p.r.n. headache. Discontinued the diclofenac and meloxicam. DISPOSITION: Stable. DISCHARGE INSTRUCTIONS: 1. Location: [facility]. 2. Diet: Fluid restrict to 1 L, heart healthy. 3. Activity: Ad mauricio. 4. Followup: a. Follow up with [facility] physicians within 14 days to establish care. b. Follow up with Dr. Steward on August 24. Job ID: [id number]
== END 2019-08-18 11:45 | disposition home or self-care (01) | DRG 645 ==
LOC: ERS 20:04 → ONC 08-16 01:39
PROVIDERS: ADMIT Family Medicine; ATTEND Family Medicine
DX: E22.2 Syndrome of inappropriate secretion of antidiuretic hormone (principal); A08.4 Viral intestinal infection, unspecified; G89.29 Other chronic pain; F32.9 Major depressive disorder, single episode, unspecified; E87.6 Hypokalemia; E83.42 Hypomagnesemia; T50.2X5A Adverse effect of carbonic-anhydrase inhibitors, benzothiadiazides and other diuretics, initial encounter; I10 Essential (primary) hypertension; Z98.2 Presence of cerebrospinal fluid drainage device
CPT/HCPCS: 36415; 36416; 70450; 71045; 80048; 80053; 80306; 80400; 81001; 82570; 83605; 83690; 83735; 83935; 84300; 84443; 84540; 85025; 96361; 96374; J0834; J1650; J2405; Q0162

== ENCOUNTER 2020-02-16 20:20 | Emergency (ER) | payer MEDICARE, MEDICAID ==
[2020-02-16] MEDS ORDERED: Ketorolac Tromethamine 30 MG/ML VIAL ONE (21:09)
--- NOTE | 2020-02-16 21:38 | RAD ---
LEFT SHOULDER: 02/16/20 Three views. HISTORY: Trauma. No fracture or dislocation. AC joint normally aligned. IMPRESSION: Unremarkable left shoulder. POS: AGW
--- NOTE | 2020-02-16 21:44 | RAD ---
LUMBAR SPINE: 02/16/20 Three views. HISTORY: Trauma. Lumbar vertebrae maintain normal height and alignment. Disc spaces are preserved. No compression. No evidence of fracture. IMPRESSION: Unremarkable lumbar spine. 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 POS: AGW
--- NOTE | 2020-02-16 21:45 | RAD ---
LEFT KNEE: 02/16/20 Four views. HISTORY: Trauma. No fracture. No joint effusion. No osseous abnormality. IMPRESSION: Negative left knee. POS: AGW
--- NOTE | 2020-02-16 21:45 | RAD ---
RIGHT KNEE: 02/16/20 Four views. HISTORY: Trauma. No fracture or joint effusion. No osseous abnormality. IMPRESSION: Negative right knee. POS: AGW
--- NOTE | 2020-02-16 21:47 | CT ---
CT CERVICAL SPINE WITHOUT CONTRAST: 02/16/20 INDICATIONS: Trauma. Cervical vertebrae maintain normal height and alignment. 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 No evid ence of cervical spine fracture. There are postoperative changes seen involving the occipital bone and posterior fossa. These have bee n previously noted. IMPRESSION: No evidence of cervical spine fracture. POS: AGW
== END 2020-02-16 22:27 | disposition home or self-care (01) ==
LOC: ERS 20:20
DX: S16.9XXA Unspecified injury of muscle, fascia and tendon at neck level, initial encounter (principal); S39.002A Unspecified injury of muscle, fascia and tendon of lower back, initial encounter; S46.902A Unspecified injury of unspecified muscle, fascia and tendon at shoulder and upper arm level, left arm, initial encounter; S89.92XA Unspecified injury of left lower leg, initial encounter; S89.91XA Unspecified injury of right lower leg, initial encounter; I10 Essential (primary) hypertension; F32.9 Major depressive disorder, single episode, unspecified; F17.210 Nicotine dependence, cigarettes, uncomplicated; V43.62XA Car passenger injured in collision with other type car in traffic accident, initial encounter
CPT/HCPCS: 72100; 72125; 96372; J1885

== ENCOUNTER 2020-09-07 14:33 | Emergency (ER) | payer MEDICARE, OTHER ==
[2020-09-07] MEDS ORDERED: Lidocaine 1% w/Epinephrine 1:100K 20 ML VIAL ONE ×2 (15:34→15:35)
== END 2020-09-07 15:59 | disposition home or self-care (01) ==
LOC: ERS 14:33
DX: T16.2XXA Foreign body in left ear, initial encounter (principal); I10 Essential (primary) hypertension; F17.210 Nicotine dependence, cigarettes, uncomplicated
CPT/HCPCS: 70250

== ENCOUNTER 2020-09-30 18:24 | Emergency (ER) | payer MEDICARE, OTHER ==
[2020-09-30] MEDS ORDERED: Cyclobenzaprine 10 MG TAB ONE (19:21)
[2020-09-30 19:36] LABS: #Lymphocytes 2.2 thou/uL (1.20-3.40); #Monocytes 0.6 thou/uL (0.11-0.59); #Neutrophils 3.3 thou/uL (1.40-6.50); %Basophils 0.7 % (0.0-1.0); %Eosinophils 0.5 % (0.0-10.0); %Lymphocytes 35.5 % (21.0-51.0); %Monocytes 10.3 % (0.0-10.0); %Neutrophils 53.1 % (42.0-75.0); Hemoglobin 12.7 g/dL (14.0-18.0); Mean Corpuscular HGB CONC 33.7 g/dL (32.0-36.0); Mean Corpuscular Hemoglobin 25.2 pg (27.0-31.0); Mean Corpuscular Volume 74.9 fL (78.0-98.0); Mean Platelet Volume 7.3 fL (7.4-10.4); Platelet Count 429 thou/uL (130-400); Red Blood Cell (RBC) Count 5.01 mill/uL (4.70-6.10); White Blood Cell (WBC) Count 6.2 thou/uL (4.8-10.8)
[2020-09-30 19:53] LABS: ALT (SGPT) 13 U/L (8-55); AST (SGOT) 24 U/L (5-34); Albumin 4.3 g/dL (3.5-5.0); Alkaline Phosphatase 79 U/L (40-110); Anion Gap 15 mmol/L (10-20); BUN (Urea Nitrogen) 12 mg/dL (8.9-20.6); CK (CPK) 406 U/L (30-200); Calc. Creatinine Clearance 0 mL/min (70-130); Calcium 10.1 mg/dL (7.8-10.44); Carbon Dioxide 26 mmol/L (22-29); Chloride 92 mmol/L (98-107); Globulin 3.1 g/dL (2.4-3.5); Glucose 86 mg/dL (70-105); Magnesium 1.8 mg/dL (1.6-2.6); Potassium 3.1 mmol/L (3.5-5.1); Protein, Total 7.4 g/dL (6.0-8.3); Sodium 130 mmol/L (136-145)
[2020-09-30] MEDS ORDERED: Potassium Chloride 20 MEQ TAB ONE (20:44)
== END 2020-09-30 21:00 | disposition home or self-care (01) ==
LOC: ERS 18:24
DX: E86.0 Dehydration (principal); E87.6 Hypokalemia; M54.9 Dorsalgia, unspecified; G89.29 Other chronic pain; I10 Essential (primary) hypertension; F17.210 Nicotine dependence, cigarettes, uncomplicated; Z79.899 Other long term (current) drug therapy
CPT/HCPCS: 80053; 82550; 83735; 85025; 93005

== ENCOUNTER 2020-10-03 22:32 | Emergency (ER) | payer MEDICARE, OTHER | END 2020-10-04 01:17 | disposition home or self-care (01) | LOC: ERS 22:32 | DX: G62.9 Polyneuropathy, unspecified (principal); I10 Essential (primary) hypertension; F17.210 Nicotine dependence, cigarettes, uncomplicated; Z79.899 Other long term (current) drug therapy; R25.2 Cramp and spasm | CPT/HCPCS: 99283 ==

== ENCOUNTER 2020-10-04 02:53 | Emergency (ER) | payer MEDICARE, OTHER | END 2020-10-04 05:01 | disposition home or self-care (01) | LOC: ERS 02:53 | DX: Z76.5 Malingerer [conscious simulation] (principal); I10 Essential (primary) hypertension; F17.210 Nicotine dependence, cigarettes, uncomplicated | CPT/HCPCS: 99281 ==

== ENCOUNTER 2020-10-04 09:16 | Emergency (ER) | payer MEDICARE, OTHER ==
[2020-10-04] MEDS ORDERED: Acetaminophen 325 MG TAB ONE (12:34)
== END 2020-10-04 13:42 | disposition home or self-care (01) ==
LOC: ERS 09:16
DX: R51.9 Headache, unspecified (principal); I10 Essential (primary) hypertension; F17.210 Nicotine dependence, cigarettes, uncomplicated
CPT/HCPCS: 99283

== ENCOUNTER 2020-10-05 10:55 | Emergency (ER) | payer MEDICARE, OTHER | END 2020-10-05 12:01 | disposition left against medical advice (07) | LOC: ERS 10:55 | DX: Z53.21 Procedure and treatment not carried out due to patient leaving prior to being seen by health care provider (principal) ==